=== PATIENT | male | born 1965 | race Two or more races ===

== ENCOUNTER 2021-11-17 16:44 | Emergency (ER) | payer OTHER ==
[~2021-11-17] VITALS: Ht 162.6 cm; Wt 79.4 kg
[2021-11-17] MEDS ORDERED: NEOMYCIN-BACITRACIN-POLYM UNITDOSE PKG TOP OINT TOP ONE (17:30)
[2021-11-17] MEDS ORDERED: HYDROcodone-ACET 5/325MG TAB PO ONE (17:30)
[2021-11-17] MEDS ORDERED: HYDR-4902 PO (23:13)
[2021-11-17] MEDS ORDERED: IBUP600T28 PO (23:13)
[2021-11-17 23:40] VITALS: BP 149/83
== END 2021-11-17 23:46 | disposition home or self-care (01) ==
LOC: ER 16:44
DX: M25.521 Pain in right elbow (principal); M79.601 Pain in right arm; I10 Essential (primary) hypertension; W11.XXXA Fall on and from ladder, initial encounter; Y93.89 Activity, other specified; Y92.89 Other specified places as the place of occurrence of the external cause; Y99.8 Other external cause status
CPT/HCPCS: 73060; 73080; 73562

== ENCOUNTER 2022-07-19 13:47 | Emergency (ER) | payer BC, OTHER ==
[~2022-07-19] VITALS: Ht 162.6 cm; Wt 65.0 kg
[~2022-07-19 13:47] MED LIST: HYDR-4902 PO; IBUP600T28 PO
[2022-07-19 14:57] LABS: Basophils # (auto) 0 10 ^3/uL (0-0.2); Basophils % (auto) 0.4 % (0.0-2.0); Eosinophils # (auto) 0 10 ^3/uL (0-0.8); Eosinophils % (auto) 0.4 % (0.0-7.0); Hematocrit 42.7 % (41.0-53.0); Lymphocytes # (auto) 2.8 10 ^3/uL (0.4-5.4); Lymphocytes % (auto) 52.1 % (10.0-50.0); Mean Corpuscular Hemoglobin 29.3 pg (28.0-32.0); Mean Corpuscular Volume 83.5 fL (80.0-100.0); Monocytes # (auto) 0.3 10 ^3/uL (0-1.3); Monocytes % (auto) 5.5 % (0.0-12.0); Neutrophils # (auto) 2.3 10 ^3/uL (1.6-8.6); Neutrophils % (auto) 41.6 % (37.0-80.0); Nucleated Red Blood Cells % 0.1 %; Red Blood Cells 5.12 10^6/uL (4.5-5.90); Red Cell Distribution Width 13.9 % (11.8-14.3); White Blood Cell 5.4 10^3/uL (4.4-10.8)
[2022-07-19 15:16] LABS: Calcium 8.9 mg/dL (8.5-10.1); Potassium 3.9 mmol/L (3.5-5.1)
[2022-07-19 15:19] LABS: BUN/Creatinine Ratio 22.6; Bilirubin, Total 0.3 mg/dL (0.2-1.0); Total Protein 7.5 g/dL (6.4-8.2)
[2022-07-19 16:55] VITALS: BP 140/83
== END 2022-07-19 16:55 | disposition home or self-care (01) ==
LOC: ER 13:47
DX: G44.209 Tension-type headache, unspecified, not intractable (principal); I16.0 Hypertensive urgency; F17.210 Nicotine dependence, cigarettes, uncomplicated
CPT/HCPCS: 36415; 70450; 80053; 82962; 84484; 85025; 93005